=== PATIENT | male | born 1975 | race Caucasian/White ===

== ENCOUNTER → 2024-04-13 14:29 | Outpatient (REF) | payer OTHER, SELFPAY | LOC: RAD 14:29 | PROVIDERS: ATTENDING PHYSICIAN Nurse Practitioner Primary Care | DX: M25.511 Pain in right shoulder (principal); M25.512 Pain in left shoulder | CPT/HCPCS: 73030 ==

== ENCOUNTER 2024-05-05 14:14 | Outpatient (RCR) | payer OTHER, SELFPAY | END 2024-05-05 23:59 | disposition home or self-care (01) | LOC: RPT 14:14 | PROVIDERS: ATTENDING PHYSICIAN Nurse Practitioner Primary Care | DX: M25.511 Pain in right shoulder (principal); M25.512 Pain in left shoulder; Z73.6 Limitation of activities due to disability | CPT/HCPCS: 97162; 97530 ==

== ENCOUNTER 2024-06-02 14:58 | Outpatient (RCR) | payer OTHER, SELFPAY | END 2024-06-02 23:59 | disposition home or self-care (01) | LOC: RPT 14:58 | PROVIDERS: ATTENDING PHYSICIAN Nurse Practitioner Primary Care | DX: M25.511 Pain in right shoulder (principal); M25.512 Pain in left shoulder; Z73.6 Limitation of activities due to disability; M62.81 Muscle weakness (generalized) | CPT/HCPCS: 97110; 97112 ==

== ENCOUNTER → 2024-08-25 07:11 | Outpatient (REF) | payer OTHER, SELFPAY | LOC: MRI 3T 07:11 | PROVIDERS: ATTENDING PHYSICIAN Student in an Organized Health Care Education/Training Program; FAMILY PHYSICIAN Nurse Practitioner Primary Care | DX: M25.512 Pain in left shoulder (principal) | CPT/HCPCS: 73221 ==

== ENCOUNTER 2024-12-28 15:54 | Emergency (ER) | payer OTHER, SELFPAY ==
[2024-12-28 15:56] VITALS: BP 139/99
--- NOTE | 2024-12-28 17:13 | ED.GENMED ---
History of Present Illness
General
Chief Complaint: DVT/Possible Blood Clot
Source: patient
Exam Limitations: none
Time Seen by Provider: 12/28/24 16:22
Nursing documentation reviewed up to this point in time: agreed with
History of Present Illness
History of Present Illness:
Patient to ED with complaint of swelling to LLE. Noticed swelling over the past few days. No history of trauma. He was seen by and advised to come to ED to r/o DVT. No history of DVT. Brought self to ED for eval
Past History
Past History
ED Past Medical History: None
Review of Systems
Review of Systems
Allergies reviewed?: Yes
All Other Systems: ROS reviewed and negative except as documented in HPI and ROS
Constitutional: Reports no symptoms
EENT: Reports no symptoms
Respiratory: Reports no symptoms
ABD/GI: Reports no symptoms
: Reports no symptoms
Musculoskeletal: Reports other (LLE swelling - knee to foot.)
Skin: Reports no symptoms
Neurological: Reports no symptoms
Psychiatric: Reports no symptoms
Phy Exam
General Physical Exam
General Presentation: well appearing and no apparent distress
General age: appears stated age
General Skin: warm and dry
General Habitus: normal
General Mental: alert
Musculoskeletal Exam
Musculoskeletal Exam: full ROM, neuro vasc intact and other (Swlling to LLE knee to toes. No pain. Full ROM to leg. )
Skin Exam
Skin Exam: normal color, warm/dry, no rash and other (LLE swelling knee to foot. No redness, no wounds, no bruising.)
Psychiatric Exam
Psychiatric Exam: normal mood/affect
Course
Orders/Labs/Results
Orders:
Orders
12/28/24 15:58
Venous Doppler Lwr Ext Left [US Periph Venous LOWER Ext LT] Urgent
Comment:
Reason For Exam: r/o DVT
Vital Signs
Initial and Last Documented VS:
Initial Vital Signs
Temp Pulse Resp BP Pulse Ox
98 F 76 16 139/99 97
12/28/24 15:56 12/28/24 15:56 12/28/24 15:56 12/28/24 15:56 12/28/24 15:56
Last Documented Vital Signs
Temp Pulse Resp BP Pulse Ox
98 F 76 16 139/99 97
12/28/24 15:56 12/28/24 15:56 12/28/24 16:00 12/28/24 15:56 12/28/24 15:56
*Critical Care Note
Total Time (30-74mins, 75-104mins- exclusive of procedures): Not Applicable
Update Note
Update Note:
Patient to ED with complaint of swelling to LLE for the past few days. No history of trauma. No redness, no bruising or wounds. Full ROM to leg, neurovasc, intact. DVT study neg. He has a history of varicose veins. WIll recomment compression
stockings and elevation, he is ageeable to plan. WIll discharge home, he will follow up with PCP.
ED Attending Note
-
Portions of this chart may have been created with voice recognition software.� Occasional wrong word or��sound alike� substitutions may have occurred due to the inherent limitations of voice recognition software.
Discharge Plan
Departure
Patient Disposition: Home (Routine Discharge)
Date of Disposition: 12/28/24
Time of Disposition: 17:06
Patient with high blood pressure during this ER visit?: No
Condition: Good
Covid-19: Not Applicable
Discharge Problem:
Leg swelling
Instructions: Swelling
Referrals:
Foreign Bowman, DO [Family Provider] - Call in 1-3 days for appt
Interventions
Interventions:
*Risk Screen - Suicide Last Done: 12/28/24 15:58
*General Assessment Last Done: 12/28/24 16:48
*Neglect/Abuse Screening Last Done: 12/28/24 15:58
*ED- Fall Risk Assessment Last Done: 12/28/24 16:48
*ED COVID-19 Vaccine History Last Done: 12/28/24 16:48
*Nursing Disposition Last Done: 12/28/24 17:12
ED- Cardiac Assessment Last Done: 12/28/24 17:08
ED- Pulmonary Assessment Last Done: 12/28/24 17:08
ED-Peripheral Vascular Assessment Last Done: 12/28/24 17:08
ED-Skin Assessment Last Done: 12/28/24 17:08
Discharge Date and Time
Print Language: KITTITIAN
== END 2024-12-28 17:13 | disposition home or self-care (01) ==
LOC: EMR 15:54
PROVIDERS: EMERGENCY PHYSICIAN Emergency Medicine; FAMILY PHYSICIAN Internal Medicine
DX: R22.42 Localized swelling, mass and lump, left lower limb (principal)
CPT/HCPCS: 99284; 93971

== ENCOUNTER → 2025-02-15 14:42 | Outpatient (REF) | payer OTHER, SELFPAY | LOC: RAD 14:42 | PROVIDERS: ATTENDING PHYSICIAN Nurse Practitioner Primary Care | DX: I87.2 Venous insufficiency (chronic) (peripheral) (principal) | CPT/HCPCS: 93971 ==

== ENCOUNTER → 2025-06-03 12:55 | Outpatient (REF) | payer OTHER, SELFPAY | LOC: HWEVLT 12:55 | PROVIDERS: ATTENDING PHYSICIAN Radiology Diagnostic Radiology | DX: I83.892 Varicose veins of left lower extremity with other complications (principal) | CPT/HCPCS: 36478 ==

== ENCOUNTER → 2025-06-17 13:34 | Outpatient (REF) | payer OTHER, SELFPAY | LOC: HWEVLT 13:34 | PROVIDERS: ATTENDING PHYSICIAN Radiology Diagnostic Radiology | DX: I83.892 Varicose veins of left lower extremity with other complications (principal) | CPT/HCPCS: 93971 ==